=== PATIENT | female | born 1950 | race Caucasian/White ===

== ENCOUNTER → 2017-04-03 | Outpatient (CLI) | payer MEDICARE, BC, SELFPAY | PROVIDERS: Visit Provider Internal Medicine | DX: I48.0 Paroxysmal atrial fibrillation (principal); Z79.01 Long term (current) use of anticoagulants; Z51.81 Encounter for therapeutic drug level monitoring; R05 Cough; R09.89 Other specified symptoms and signs involving the circulatory and respiratory systems; I50.9 Heart failure, unspecified | CPT/HCPCS: 36415; 71020; 85610 ==

== ENCOUNTER 2017-04-06 17:38 | Emergency (ER) | payer MEDICARE, BC, SELFPAY | END 2017-04-06 20:48 | disposition short-term general hospital (02) | PROVIDERS: Emergency Provider Emergency Medicine; Family Provider Internal Medicine; Visit Provider Emergency Medicine | DX: I48.0 Paroxysmal atrial fibrillation (principal); Z79.01 Long term (current) use of anticoagulants; I50.9 Heart failure, unspecified; J90 Pleural effusion, not elsewhere classified; E11.9 Type 2 diabetes mellitus without complications; Z79.4 Long term (current) use of insulin; Z79.84 Long term (current) use of oral hypoglycemic drugs | CPT/HCPCS: 71020; 80053; 82550; 82553; 83605; 83880; 84484; 85025; 85610; 85730; 87040; 93005; 94640; 96365; 96367; 96375; 96376; 99285 ==

== ENCOUNTER → 2017-04-16 13:41 | Outpatient (CLI) | payer MEDICARE, BC, SELFPAY ==
[2017-04-16 14:18] LABS: INR 3.91 (0.9-1.1); Prothrombin Time 42.8 seconds (9.4-11.8)
== END ==
PROVIDERS: PCP Internal Medicine; Visit Provider Internal Medicine
DX: Z79.01 Long term (current) use of anticoagulants (principal); Z51.81 Encounter for therapeutic drug level monitoring
CPT/HCPCS: 36415; 85610